=== PATIENT | female | born 1965 | race Caucasian/White ===

== ENCOUNTER 2019-10-24 12:37 | Emergency (ER) | payer MEDICARE, OTHER ==
[~2019-10-24] VITALS: Ht 162.6 cm; Wt 49.5 kg
[~2019-10-24 12:37] MED LIST: KEPPRA500 MG PO; LAMICTAL100 MG PO; LIPITOR20 MG PO; NEXIUM40 MG PO; TOPAMAX25 MG PO; XANAX0.5 MG PO
[2019-10-24] MEDS ORDERED: TRAZODONE HCL50 MG PO (17:34)
[2019-10-24] MEDS ORDERED: BRIVIACT100 MG (17:34)
[2019-10-24] MEDS ORDERED: CYCLOBENZAPRINE5 MG (17:34)
[2019-10-24] MEDS ORDERED: LAMOTRIGINE100 MG PO (17:34)
== END 2019-10-24 13:06 | disposition home or self-care (01) ==
LOC: FSED 12:37
DX: G40.309 Generalized idiopathic epilepsy and epileptic syndromes, not intractable, without status epilepticus (principal)
CPT/HCPCS: 99282

== ENCOUNTER 2019-12-04 13:22 | Emergency (ER) | payer OTHER ==
[~2019-12-04] VITALS: Ht 162.6 cm; Wt 49.1 kg
[~2019-12-04 13:22] MED LIST changes: +BRIVIACT100 MG; +CYCLOBENZAPRINE5 MG; +LAMOTRIGINE100 MG PO; +TRAZODONE HCL50 MG PO
--- OUTSIDE RECORDS SUMMARY | 2019-12-04 13:24 | XMS REPORT ---
Author Author [facility] Address Unknown Phone Unavailable Care Team Providers [employer] Name Role Phone NONSTAFF PP Unavailable Payers Payer Name Policy Type Policy Number Effective Date Expiration Date [facility] [facility] [id number] 2011 00:00:00 Problems This patient has no known problems. Allergies, Adverse Reactions, Alerts Allergy Name Allergy Type Status Severity Reaction(s) Onset Date Inactive Date Treating Clinician Comments Hydrocodone Allergy to Substance Active Moderate NAUSEA 2019-10-24 00:00:00 Cephalexin Allergy to Substance Active Unknown rash/hives 2019-10-24 00:00:00 Codeine Allergy to Substance Active Moderate NAUSEA 2016-05-10 00:00:00 Medications Ordered Medication Name Filled Medication Name Start Date Stop Date Current Medication? Ordering Clinician Indication Dosage Frequency Signature (SIG) Comments Components Lamotrigine (Lamictal) 100 Mg Tab Lamotrigine (Lamictal) 100 Mg Tab Yes 150 Twice A Day Topiramate (Topamax) 25 Mg Tablet Topiramate (Topamax) 25 Mg Tablet Yes 200 Twice A Day Alprazolam (Xanax) 0.5 Mg Tablet, 0.5 Mg Oral Alprazolam (Xanax) 0.5 Mg Tablet, 0.5 Mg Oral 2019-10-24 00:00:00 No .5 Three Times A Day Atorvastatin Calcium (Lipitor) 20 Mg Tablet, 20 Mg Oral Atorvastatin Calcium (Lipitor) 20 Mg Tablet, 20 Mg Oral 2019-10-24 00:00:00 No 20 Daily Esomeprazole Magnesium (Nexium) 40 Mg Capsule., 40 Mg Oral Esomeprazole Magnesium (Nexium) 40 Mg Capsule., 40 Mg Oral 2019-10-24 00:00:00 No 40 Daily Levetiracetam (Keppra) 500 Mg Tablet, 1000 Mg Oral Levetiracetam (Keppra) 500 Mg Tablet, 1000 Mg Oral 2019-10-24 00:00:00 No 1000 Twice A Day Encounters Start Date/Time End Date/Time Encounter Type Admission Type Attending [facility] Facility Care Department Encounter ID 2019-10-24 12:37:00 2019-10-24 13:06:00 Departed Emergency Room [facility] [id number]
[2019-12-04] MEDS ORDERED: LACTULOSE20 GM/30 M PO (13:56)
[2019-12-04] MEDS ORDERED: ALBUTEROL0.63 MG/3 (13:56)
[2019-12-04] MEDS ORDERED: PREDNISONE50 MG PO (14:15)
[2019-12-04] MEDS ORDERED: BACTRIM DS TAB1 EACH PO (14:15)
== END 2019-12-04 14:27 | disposition home or self-care (01) ==
LOC: FSED 13:22
DX: N76.4 Abscess of vulva (principal); K61.1 Rectal abscess; J44.9 Chronic obstructive pulmonary disease, unspecified; G40.909 Epilepsy, unspecified, not intractable, without status epilepticus; F17.210 Nicotine dependence, cigarettes, uncomplicated
CPT/HCPCS: 99282